=== PATIENT | male | born 1970 | race Caucasian/White ===

== ENCOUNTER 2018-05-27 12:35 | Emergency (ER) | payer OTHER ==
[2018-05-27 12:43] VITALS: TEMP 98.2
[2018-05-27] MEDS ORDERED: ACET/COD 300 MG/30 MG STARTER PACK 6 TAB BTL PO STA (12:57)
--- NOTE | 2018-05-27 12:59 | ED ---
ENT HPI - General Chief complaint: Dental/Oral Stated complaint: Tooth Pain Time Seen by Provider: 05/27/18 12:47 Source: patient, RN notes reviewed Mode of arrival: ambulatory Limitations: no limitations - History of Present Illness Initial comments: 48-year-old male presents emergency Department chief complaint of left lower dental pain. Patient states it has increased over the last couple days. Patient states is throbbing controlled by ibuprofen but is not helping. Patient has an appointment with dental clinic on Monday for multiple tooth extractions. Patient admits to mild lower left swelling no fever no chills no neck pain no neck stiffness. - Related Data Previous Rx's Medication Instructions Recorded Penicillin V Potassium [Pen Vee K] 500 mg PO QID #40 tablet 05/27/18 Allergies Allergy/AdvReac Type Severity Reaction Status Date / Time duloxetine [From Cymbalta] Allergy Unknown Verified 05/27/18 12:43 Review of Systems ROS Statement: Those systems with pertinent positive or pertinent negative responses have been documented in the HPI. ROS Other: All systems not noted in ROS Statement are negative. Past Medical History Past Medical History: Hypertension History of Any Multi-Drug Resistant Organisms: None Reported Past Surgical History: Hernia Repair Additional Past Surgical History / Comment(s): eye surgery Past Psychological History: No Psychological Hx Reported Smoking Status: Current every day smoker Past Alcohol Use History: Occasional Past Drug Use History: Marijuana General Exam Limitations: no limitations General appearance: alert, in no apparent distress Head exam: Present: atraumatic, normocephalic, normal inspection Eye exam: Present: normal appearance, PERRL, EOMI. Absent: scleral icterus, conjunctival injection, periorbital swelling ENT exam: Present: mucous membranes moist, TM's normal bilaterally. Absent: normal oropharynx (Edentulous, poor dentition, no drainable abscess.) Neck exam: Present: normal inspection, full ROM. Absent: tenderness, meningismus, lymphadenopathy Respiratory exam: Present: normal lung sounds bilaterally. Absent: respiratory distress, wheezes, rales, rhonchi, stridor Cardiovascular Exam: Present: regular rate, normal rhythm, normal heart sounds. Absent: systolic murmur, diastolic murmur, rubs, gallop, clicks Course Vital Signs 05/27/18 12:41 Temperature 98.2 F Pulse Rate 66 Respiratory 20 Rate Blood Pressure 175/100 O2 Sat by Pulse 99 Oximetry Medical Decision Making - Medical Decision Making 48-year-old male present emergency department for dental pain. Patient be started on antiemetics for dental infection. Patient given [Tylenol codeine and will follow-up with dental clinic on Monday. Disposition Clinical Impression: Dental infection, Dental caries Disposition: HOME SELF-CARE Condition: Stable Instructions: Dental Abscess (ED) Additional Instructions: Please return to the Emergency Department if symptoms worsen or any other concerns. Prescriptions: Penicillin V Potassium [Pen Vee K] 500 mg PO QID #40 tablet Is patient prescribed a controlled substance at d/c from ED?: No Referrals: [facility] [Primary Care Provider] - 1-2 days Time of Disposition: 12:59
[2018-05-27 13:16] VITALS: BP 185/107; PULSE 64; RESP 18
== END 2018-05-27 13:16 | disposition home or self-care (01) ==
LOC: EC 12:35
DX: K04.7 Periapical abscess without sinus (principal); K02.9 Dental caries, unspecified; F17.200 Nicotine dependence, unspecified, uncomplicated; Z79.899 Other long term (current) drug therapy
CPT/HCPCS: 99282

== ENCOUNTER 2018-06-17 13:04 | Emergency (ER) | payer OTHER ==
[2018-06-17 13:22] VITALS: BP 161/106; PULSE 64; RESP 16; TEMP 98.4
[2018-06-17] MEDS ORDERED: ACET/COD 300 MG/30 MG STARTER PACK 6 TAB BTL PO STA (14:03)
[2018-06-17] MEDS ORDERED: PENICILLIN VK 500MG STARTER 4 TAB BTL PO STA (14:03)
--- NOTE | 2018-06-17 14:05 | ED ---
General Adult HPI - General Chief complaint: Recheck/Abnormal Lab/Rx Stated complaint: Dental pain Time Seen by Provider: 06/17/18 13:55 Source: patient, RN notes reviewed, old records reviewed Mode of arrival: ambulatory Limitations: no limitations - History of Present Illness Initial comments: Patient is a 48 year old male presents with CC of dental pain. Patient had lower left molars removed last week. Patient reports he started having increased pain 2 days ago. Ibuprofen has not helped. Patient has had no fevers or chills. Denies triusmus or foul taste or odor in mouth. Patient denies facial swelling. - Related Data Home Medications Medication Instructions Recorded Confirmed Lisinopril [Zestril] 20 mg PO DAILY 05/27/18 06/17/18 Previous Rx's Medication Instructions Recorded Penicillin V Potassium [Pen Vee K] 500 mg PO QID #40 tablet 06/17/18 Allergies Allergy/AdvReac Type Severity Reaction Status Date / Time duloxetine [From Cymbalta] Allergy Unknown Verified 06/17/18 13:22 Review of Systems ROS Statement: Those systems with pertinent positive or pertinent negative responses have been documented in the HPI. ROS Other: All systems not noted in ROS Statement are negative. Past Medical History Past Medical History: Hypertension History of Any Multi-Drug Resistant Organisms: None Reported Past Surgical History: Hernia Repair Additional Past Surgical History / Comment(s): eye surgery Past Psychological History: No Psychological Hx Reported Smoking Status: Current every day smoker Past Alcohol Use History: Occasional Past Drug Use History: Marijuana General Exam - General Exam Comments Initial Comments: Well appearing 48 yea rold male, no distress. Limitations: no limitations General appearance: alert, in no apparent distress Head exam: Present: atraumatic, normocephalic, normal inspection Eye exam: Present: normal appearance, PERRL, EOMI. Absent: scleral icterus, conjunctival injection, periorbital swelling ENT exam: Present: normal exam, mucous membranes moist, other (Poor dentition, evdience of recent dental surgery over left lower molars. Evidnece of sutures. Patient has tenderness to palpation over gums. No drainable abscess at this time. ) Neck exam: Present: normal inspection. Absent: tenderness, meningismus, lymphadenopathy Respiratory exam: Present: normal lung sounds bilaterally. Absent: respiratory distress, wheezes, rales, rhonchi, stridor Cardiovascular Exam: Present: regular rate, normal rhythm, normal heart sounds. Absent: systolic murmur, diastolic murmur, rubs, gallop, clicks GI/Abdominal exam: Present: soft, normal bowel sounds. Absent: distended, tenderness, guarding, rebound, rigid Course Vital Signs 06/17/18 13:18 Temperature 98.4 F Pulse Rate 64 Respiratory 16 Rate Blood Pressure 161/106 O2 Sat by Pulse 98 Oximetry Procedures - Nerve Block Local Anesthetic Used: Marcaine 0.5% Amount of anesthesia used: 3 Side: left Intraoral Nerve Block: inferior alveolar Procedure Successful: Yes Complications: none Patient Tolerated Procedure: well, no complications Medical Decision Making - Medical Decision Making 48 year old male presents with dnetal pain, 1 week after left lower molars removed. He has tenderness over gums, no drainable abscess at this time. Evidence of intact sutures. Patient has appt with dentist tomorrow, but could not handle the pain until then. Patient was given antibiotics, tylenol 3 starter pack. Given inferior alveolar block and was successfull. Patient at this time will ahve close follow up with PCP and discussed return parameters. Disposition Clinical Impression: Dental infection, Dental caries Disposition: HOME SELF-CARE Condition: Good Instructions: Dental Abscess (ED) Additional Instructions: Following up with primary care provider and dentist tomorrow. Return to emergency department if any alarming signs or symptoms occur. Prescriptions: Penicillin V Potassium [Pen Vee K] 500 mg PO QID #40 tablet Is patient prescribed a controlled substance at d/c from ED?: No Referrals: [facility] [Primary Care Provider] - 1-2 days Time of Disposition: 14:03
== END 2018-06-17 14:15 | disposition home or self-care (01) ==
LOC: EC 13:04
DX: K04.7 Periapical abscess without sinus (principal); K02.9 Dental caries, unspecified; K08.409 Partial loss of teeth, unspecified cause, unspecified class; I10 Essential (primary) hypertension; F17.200 Nicotine dependence, unspecified, uncomplicated; Z98.818 Other dental procedure status; Z79.899 Other long term (current) drug therapy; Z88.8 Allergy status to other drugs, medicaments and biological substances
CPT/HCPCS: 64450; 99283

== ENCOUNTER 2018-06-24 09:24 | Emergency (ER) | payer OTHER ==
[2018-06-24 09:35] VITALS: BP 110/60; PULSE 111; RESP 18; TEMP 98.9
[2018-06-24] MEDS ORDERED: DEXAMETHASONE SOD PHOSPHATE 10 MG/ML 1 ML VIAL IM STA (09:46)
--- NOTE | 2018-06-24 09:49 | ED ---
General Adult HPI - General Chief complaint: Dental/Oral Stated complaint: Dental pain Time Seen by Provider: 06/24/18 09:38 Source: patient, RN notes reviewed Mode of arrival: ambulatory Limitations: no limitations - History of Present Illness Initial comments: Patient's a 48-year-old male presented to the emergency room today with a chief complaint of increased sinus congestion and a sore throat. He doesn't that he had upper teeth removed 2 days ago. Patient states that he's had increased sinus congestion. He seemed a little bit of blood in the discharge from his nose when he blows. Patient states that his had increased sore throat since hurts when he swallows. Patient states symptoms started yesterday. Patient denies any other complaints or symptoms. Patient denies any recent fever, chills , shortness of breath, chest pain, back pain, abdominal pain, nausea or vomiting , numbness or tingling, headaches or visual changes, or any other complaints. - Related Data Home Medications Medication Instructions Recorded Confirmed Lisinopril [Zestril] 20 mg PO DAILY 05/27/18 06/24/18 Previous Rx's Medication Instructions Recorded Amoxicillin 500 mg PO Q8H 10 Days day 06/24/18 Fluticasone Propionate [Flonase 1 - 2 spray EA NOSTRIL DAILY 5 06/24/18 Allergy Relief] Days ml Allergies Allergy/AdvReac Type Severity Reaction Status Date / Time duloxetine [From Cymbalta] Allergy Unknown Verified 06/24/18 09:35 Review of Systems ROS Statement: Those systems with pertinent positive or pertinent negative responses have been documented in the HPI. ROS Other: All systems not noted in ROS Statement are negative. Past Medical History Past Medical History: Hypertension History of Any Multi-Drug Resistant Organisms: None Reported Past Surgical History: Hernia Repair Additional Past Surgical History / Comment(s): eye surgery Past Psychological History: Anxiety, Depression, PTSD Smoking Status: Current every day smoker Past Alcohol Use History: Occasional Past Drug Use History: None Reported General Exam - General Exam Comments Initial Comments: General: The patient is awake and alert, in no distress, and does not appear acutely ill. Eye: Pupils are equal, round and reactive to light. Extra-ocular movements are intact. No nystagmus. There is normal conjunctiva bilaterally. No signs of icterus. Ears, nose, mouth and throat: There are moist mucous membranes and no oral lesions. Patient does have tenderness over both frontal and maxillary sinuses. Patient he will midline. Swallows without difficulty. Patient does have upper teeth all removed. There is no bleeding no sign of abscess. Neck: The neck is supple, there is no tenderness or JVD. Cardiovascular: There is a regular rate and rhythm. No murmur, rub or gallop is appreciated. Respiratory: Lungs are clear to auscultation, respirations are non-labored, breath sounds are equal. No wheezes, stridor, rales, or rhonchi. Musculoskeletal: Normal ROM, no tenderness. Sensation intact. Strength 5/5. Pulses equal bilaterally 2+. Neurological: A&O x 3. CN II-XII intact, There are no obvious motor or sensory deficits. Coordination appears grossly intact. Speech is normal. Skin: Skin is warm and dry and no rashes or lesions are noted. Psychiatric: Cooperative, appropriate mood & affect, normal judgment. Limitations: no limitations Course Vital Signs 06/24/18 09:31 Temperature 98.9 F Pulse Rate 111 H Respiratory 18 Rate Blood Pressure 110/60 O2 Sat by Pulse 97 Oximetry Medical Decision Making - Medical Decision Making Patient does have tenderness over the sinuses. Patient did have recent upper teeth completely removed. Patient's will be treated for sinus infection. Given dose of steroids here in the emergency room. Will be given Flonase covered for infection with antibiotics. He is advised follow-up family doctor in the next 2 days return if any symptoms increase or worsen. Disposition Clinical Impression: Acute sinusitis Disposition: HOME SELF-CARE Condition: Good Instructions: Sinusitis (ED) Additional Instructions: Please use medication as discussed. Please follow-up with family doctor in the next 2 days of symptoms have not improved. Please return to emergency room if the symptoms increase or worsen or for any other concerns. Prescriptions: Amoxicillin 500 mg PO Q8H 10 Days day Fluticasone Propionate [Flonase Allergy Relief] 1 - 2 spray EA NOSTRIL DAILY 5 Days ml Is patient prescribed a controlled substance at d/c from ED?: No Referrals: [facility] [Primary Care Provider] - 1-2 days Time of Disposition: 09:49
== END 2018-06-24 09:57 | disposition home or self-care (01) ==
LOC: EC 09:24
DX: J01.90 Acute sinusitis, unspecified (principal); K08.409 Partial loss of teeth, unspecified cause, unspecified class; I10 Essential (primary) hypertension; F17.200 Nicotine dependence, unspecified, uncomplicated; Z79.899 Other long term (current) drug therapy; Z88.8 Allergy status to other drugs, medicaments and biological substances
CPT/HCPCS: 99282; 96372; J1100

== ENCOUNTER 2018-07-12 09:44 | Day surgery (SDC) | payer OTHER ==
[2018-07-06 15:21] VITALS: BMI 23.9
[~2018-07-12 09:44] MED LIST: DEXAMETHASONE SOD PHOSPHATE 10 MG/ML 1 ML VIAL IV ONE; LACTATED RINGERS 1,000 ML IV SCH; LIDOCAINE 1% 20 ML VIAL (10MG/ML) FOR IV START INTRADERMA PRN; MIDAZOLAM 2 MG/2 ML VIAL IV PRN; ONDANSETRON 4 MG/2 ML VIAL IVP ONE
[2018-07-12] MEDS ORDERED: BUPIVACAIN-EPI 0.25%-1:200,000 30 ML VIAL SQ ONE ×2 (11:05→11:08)
[2018-07-12] MEDS: ceFAZolin IN SWFI 2 GM/20 ML SYRINGE IVP ONE ×2 (11:07→11:45)
[2018-07-12] MEDS ORDERED: fentaNYL (PF) 50 MCG/ML 2 ML AMP ONE (11:30)
[2018-07-12] MEDS ORDERED: HYDROmorphone (PF) 1 MG/ML ONE (11:30)
[2018-07-12] MEDS ORDERED: LIDOCAINE 1% INJ 10MG/ML (20 ML MDV) ONE (11:30)
[2018-07-12] MEDS ORDERED: PROPOFOL 10 MG/ML 20 ML VIAL IV ONE (11:30)
[2018-07-12] MEDS ORDERED: MIDAZOLAM 2 MG/2 ML VIAL ONE (11:30)
[2018-07-12] MEDS ORDERED: KETOROLAC 30 MG/ML 1 ML VIAL ONE (11:30)
[2018-07-12] MEDS ORDERED: SUCCINYLCHOLINE CHLORIDE 100 MG/5 ML SYR IV ONE (11:30)
[2018-07-12 12:47] VITALS: TEMP 97.7
[2018-07-12] MEDS: fentaNYL (PF) 50 MCG/ML 2 ML AMP IV PRN ×2 (12:50→12:56)
[2018-07-12 13:40] VITALS: RESP 18
[2018-07-12] MEDS ORDERED: HYDROcodone/APAP 5-325MG 1 EACH TAB PO ONE (13:56)
[2018-07-12 14:16] VITALS: BP 135/75; PULSE 97
--- NOTE | 2018-07-12 19:18 | OP ---
OPERATIVE REPORT DATE OF PROCEDURE: 07/12/2018. PREOPERATIVE DIAGNOSIS: Right knee medial meniscus tear. POSTOP DIAGNOSES: 1. Right knee posterior horn medial meniscus tear. 2. Right knee thickened infrapatellar medial shelf plica. PROCEDURE PERFORMED: 1. Right knee arthroscopic partial medial meniscectomy. 2. Right knee arthroscopic lysis of adhesions. SURGEON: Raudel Padilla M.D. ASSISTANT TO THE DEAN: Cornelio MARLEY. ANESTHESIA: General endotracheal. ESTIMATED BLOOD LOSS: Was minimal. TOURNIQUET: Was none. DRAINS: None. COMPLICATIONS: None apparent. DISPOSITION: Postanesthesia care unit. INDICATIONS: Calos is a very pleasant 48-year-old male who had a twisting injury to his right knee. Physical examination and MRI are consistent with a tearing of the posterior horn of the medial meniscus. I had a long discussion with him with regard to treatment options. At this point, he does wish to proceed with operative intervention. Risks were explained to the patient which include, but are not limited to risk of infection, nerve damage, bleeding, pain, and a small risk of deep vein thrombosis which could lead to fatal pulmonary embolism. The patient understands these risks and wished to proceed with surgical procedure. Examination under anesthesia: Range of motion right full, left full. Effusion: Right mild, left none. Bernadette: Right with good end point. Left normal good end point. Pivot shift right grade 0, left grade 0. Posterior drawer right with good end point. Left normal good end point. Varus laxity right none, left none valgus laxity right none, left none. External rotation right normal, left normal. ARTHROSCOPIC FINDINGS: Suprapatellar pouch is normal. Medial gutter thickened medial shelf plica. Lateral gutters normal. Patella normal chondral surfaces. Trochlea had grade 1-2 change in the central aspect of the trochlea. Patellar tracking was normal. The medial femoral condyle, normal chondral surfaces. Medial tibial plateau very mild grade 1 change. Medial meniscus complex tear of the posterior horn in the middle body of the medial meniscus. There was a large displaced flap tear laterally into the infrapatellar notch as well. Lateral femoral condyle normal chondral surfaces, lateral tibial plateau diffuse grade 1 change. Lateral meniscus was normal. Anterior cruciate ligament normal. Posterior cruciate ligament normal. Infrapatellar notch thickened inferior plica. DESCRIPTION OF THE PROCEDURE: Patient was identified in the preoperative holding area. Surgical site was marked by both the patient and myself. He was given 2 g of Ancef IV for prophylactic purposes. He was then transported to the operative suite. He was placed supine on the operative table. General anesthetic was then administered and dosed per the anesthesia without apparent complication. Examination under anesthesia was then performed of both knees. The findings noted above. Tourniquet was then placed high on the right upper thigh well-padded in preparation for surgery. The tourniquet was not inflated throughout the entire procedure. The patient's right lower extremity is then prepped and draped in usual sterile fashion. Standard surgical pause undertaken to ensure that we were operating the correct site and that appropriate preoperative antibiotics were given. All staff in the room in agreement. We proceeded. The knee was then inflated with 120 mL sterile saline solution. This was done to gradually distend the joint. A standard inferolateral portal was then made. A 30 degree arthroscope was introduced into the suprapatellar pouch. The arthroscopic pump pressure was set at 60 mmHg and maintained at that level throughout the entire case. Next utilizing an 18-gauge spinal needle topical localized placement, the inferomedial port was made under direct visualization. Standard diagnostic arthroscopy of the knee was then performed. Findings noted above. Attention first drawn to the inferior notch. He had a very thickened infrapatellar plica and medial shelf plica. These were released with a biter and debrided back to stable tissue utilizing synovial shaver. Attention then drawn to the medial compartment of the knee. A very macerated posterior horn midbody tear of the medial meniscus. It was very complex. There was a very large flap tear, which had been flipped laterally into the notch. This tear was deemed irreparable. The meniscus tear was then debrided with a combination of biters and a shaver back to stable tissue. Approximately 50% of the posterior horn and midbody of the meniscus remained intact after debridement. Next, the arthroscope was placed medial to the posterior cruciate ligament through the notch in the posteromedial compartment knee. There were no residual flap tears or loose bodies noted. The posterior root attachment was carefully inspected and found to be intact. At this point time, no further work was deemed necessary. The knee was thoroughly irrigated and drained with an outflow cannula. The arthroscope was removed from the knee. The arthroscopic portals were then closed with 3-0 nylon interrupted suture. Sterile compressive dressing was then applied. All sponge and needle counts were deemed correct prior to closure. The patient tolerated the procedure without apparent complication. The tourniquet was not inflated throughout the entire procedure. Transferred to the recovery room in stable condition. MARIEL / GERARDO: [id number] /
== END 2018-07-12 14:57 | disposition home or self-care (01) ==
LOC: OR 09:44
PROVIDERS: ATTEND Orthopaedic Surgery Sports Medicine
DX: S83.231A Complex tear of medial meniscus, current injury, right knee, initial encounter (principal); M67.52 Plica syndrome, left knee; M71.21 Synovial cyst of popliteal space [Baker], right knee; I10 Essential (primary) hypertension; F32.9 Major depressive disorder, single episode, unspecified; F41.9 Anxiety disorder, unspecified; F43.10 Post-traumatic stress disorder, unspecified; K21.9 Gastro-esophageal reflux disease without esophagitis; F17.210 Nicotine dependence, cigarettes, uncomplicated; X50.1XXA Overexertion from prolonged static or awkward postures, initial encounter; Z79.899 Other long term (current) drug therapy; Z82.49 Family history of ischemic heart disease and other diseases of the circulatory system
CPT/HCPCS: 29881; J2250; J1100; J2405; J2001; J3010; J1885; J1170; J0330; J2704; J0690

== ENCOUNTER 2018-08-13 17:47 | Emergency (ER) | payer OTHER ==
[2018-08-13 18:00] VITALS: TEMP 97.4
--- NOTE | 2018-08-13 18:57 | ED ---
Psych HPI - General Chief Complaint: Psychiatric Symptoms Stated Complaint: Mental Health Time Seen by Provider: 08/13/18 18:08 Source: patient, RN notes reviewed Mode of arrival: ambulatory - History of Present Illness Initial Comments: This is a 48-year-old male history depression and suicidal thoughts admits to drinking some alcohol today he also states he was just kicked out of the [facility] group home he was seen after last 90 days. He has nowhere to live he does admit to being depressed he's had suicidal thoughts especially over last week no definite plan at this time. He denies any other modifying factors at this time no street drugs. MD Complaint: suicidal ideation, feels depressed - Related Data Home Medications Medication Instructions Recorded Confirmed Lisinopril [Zestril] 20 mg PO DAILY 05/27/18 08/13/18 [place] Carbonate 600 mg PO HS 07/06/18 08/13/18 Loratadine [Claritin] 10 mg PO DAILY 07/06/18 08/13/18 Omeprazole [PriLOSEC] 20 mg PO AC-BRKFST 07/06/18 08/13/18 QUEtiapine FUMARATE [SEROquel] 300 mg PO HS 07/06/18 08/13/18 Albuterol Inhaler [Ventolin Hfa 1 puff INHALATION RT-Q6H PRN 08/13/18 08/13/18 Inhaler] Desvenlafaxine [Pristiq ER] 100 mg PO DAILY 08/13/18 08/13/18 Diclofenac Sodium [Voltaren Gel] 1 applic TOPICAL QID PRN 08/13/18 08/13/18 Ergocalciferol (Vitamin D2) 50,000 unit PO Q14D 08/13/18 08/13/18 [Vitamin D2] Menthol [Biofreeze] 1 applic TOPICAL TID PRN 08/13/18 08/13/18 Propranolol [Inderal] 40 mg PO BID 08/13/18 08/13/18 Allergies Allergy/AdvReac Type Severity Reaction Status Date / Time duloxetine [From Cymbalta] AdvReac Nausea & Verified 08/13/18 18:44 Vomiting Review of Systems ROS Statement: Those systems with pertinent positive or pertinent negative responses have been documented in the HPI. ROS Other: All systems not noted in ROS Statement are negative. Past Medical History Past Medical History: GERD/Reflux, Hypertension Additional Past Medical History / Comment(s): torn meniscus rt knee History of Any Multi-Drug Resistant Organisms: None Reported Past Surgical History: Hernia Repair, Orthopedic Surgery Additional Past Surgical History / Comment(s): eye surgery, rt elbow Past Anesthesia/Blood Transfusion Reactions: No Reported Reaction Past Psychological History: Anxiety, Depression, PTSD Smoking Status: Current every day smoker Past Alcohol Use History: Occasional Past Drug Use History: None Reported - Past Family History Mother Family Medical History: No Reported History General Exam - General Exam Comments Initial Comments: This is a well-developed well-nourished awake alert oriented 3 male Limitations: no limitations General appearance: alert, in no apparent distress Head exam: Present: atraumatic, normocephalic, normal inspection Eye exam: Present: normal appearance, PERRL, EOMI. Absent: scleral icterus, conjunctival injection, periorbital swelling ENT exam: Present: normal exam, mucous membranes moist Neck exam: Present: normal inspection. Absent: tenderness, meningismus, lymphadenopathy Respiratory exam: Present: normal lung sounds bilaterally. Absent: respiratory distress, wheezes, rales, rhonchi, stridor Cardiovascular Exam: Present: regular rate, normal rhythm, normal heart sounds. Absent: systolic murmur, diastolic murmur, rubs, gallop, clicks GI/Abdominal exam: Present: soft, normal bowel sounds. Absent: distended, tenderness, guarding, rebound, rigid Extremities exam: Present: normal inspection, full ROM, normal capillary refill. Absent: tenderness, pedal edema, joint swelling, calf tenderness Back exam: Present: normal inspection Neurological exam: Present: alert, oriented X3, CN II-XII intact Psychiatric exam: Present: depressed, flat affect, suicidal ideation Skin exam: Present: warm, dry, intact, normal color. Absent: rash Course Vital Signs 08/13/18 17:56 Temperature 97.4 F L Pulse Rate 55 L Respiratory 18 Rate Blood Pressure 127/84 O2 Sat by Pulse 100 Oximetry Medical Decision Making - Medical Decision Making The patient was evaluated by psychiatric service currently is not a risk to himself or anyone else he will be discharged back to his group home who is agreed to take him back. He'll follow-up with [facility] tomorrow. He is in agreement with this. - Lab Data Lab Results 11/26/18 Range/Units 20:19 Urine Opiates Screen Not Detected (NotDetected) Ur Oxycodone Screen Not Detected (NotDetected) Urine Methadone Screen Not Detected (NotDetected) Ur Propoxyphene Screen Not Detected (NotDetected) Ur Barbiturates Screen Not Detected (NotDetected) U Tricyclic Antidepress Not Detected (NotDetected) Ur Phencyclidine Scrn Not Detected (NotDetected) Ur Amphetamines Screen Not Detected (NotDetected) U Methamphetamines Scrn Not Detected (NotDetected) U Benzodiazepines Scrn Not Detected (NotDetected) Urine Cocaine Screen Not Detected (NotDetected) U Marijuana (THC) Screen Not Detected (NotDetected) Disposition Clinical Impression: Adjustment reaction Disposition: HOME SELF-CARE Condition: Good Instructions: Mood Disorders (ED) Is patient prescribed a controlled substance at d/c from ED?: No Referrals: [facility] [Primary Care Provider] - 1-2 days
[2018-08-13 20:37] LABS: Cocaine Screen,Urine Not Detected (NotDetected); Phencyclidine Screen,Urine Not Detected (NotDetected); Urn Cannabinoid Scrn Not Detected (NotDetected)
[2018-08-13 20:38] LABS: Amphetamine Screen,Urine Not Detected (NotDetected); Barbiturate Screen,Urine Not Detected (NotDetected); Benzodiazepines Screen,Urine Not Detected (NotDetected); Methadone Screen, Urine Not Detected (NotDetected); Opiate Screen,Urine Not Detected (NotDetected); Oxycodone Screen, Urine Not Detected (NotDetected); Tricyclic Antidepressant,Urine Not Detected (NotDetected)
[2018-08-13 22:16] VITALS: BP 122/86; PULSE 65; RESP 14
== END 2018-08-13 23:15 | disposition home or self-care (01) ==
LOC: EC 17:47
DX: F43.20 Adjustment disorder, unspecified (principal); I10 Essential (primary) hypertension; K21.9 Gastro-esophageal reflux disease without esophagitis; F32.9 Major depressive disorder, single episode, unspecified; F17.200 Nicotine dependence, unspecified, uncomplicated; Z79.899 Other long term (current) drug therapy; Z88.8 Allergy status to other drugs, medicaments and biological substances
CPT/HCPCS: 80306; 82075; 99284

== ENCOUNTER 2018-08-14 19:54 | Emergency (ER) | payer OTHER ==
[2018-08-14 20:38] VITALS: BP 142/87; PULSE 56; RESP 18; TEMP 98.2
--- NOTE | 2018-08-14 20:59 | ED ---
Psych HPI - General Chief Complaint: Psychiatric Symptoms Stated Complaint: Mental health, hand pain Time Seen by Provider: 08/14/18 20:56 Source: patient Mode of arrival: ambulatory - History of Present Illness Initial Comments: Calos is a 48-year-old male who is brought to the ED today for mental health evaluation. Calos states that today he was kicked out of his [facility] where he has been living, he spent the entire day outside in the cold weather. He does state that he has been in and out of warmth buildings and he doesn't feel they got too cold those hands didn't turn purple this afternoon. Patient states that throughout the day he's been having thoughts of harming the employees at the [facility] because he is upset that they have kicked him out. Patient states passive depressive thoughts no specific plan to harm himself. He reports that he is compliant with his home antidepressants which are prescribed by his primary care doctor and nurse practitioner at [facility]. Patient states that he is scheduled to see his therapist tomorrow. Patient has no history of inpatient psychiatric hospitalization in the past. Patient is not actively homicidal, suicidal, delusional or hallucinating. He is able to attend his activities of daily living. He states that he believes most of why he is here is because he was cold. - Related Data Home Medications Medication Instructions Recorded Confirmed Lisinopril [Zestril] 20 mg PO DAILY 05/27/18 08/14/18 [place] Carbonate 600 mg PO HS 07/06/18 08/14/18 Loratadine [Claritin] 10 mg PO DAILY PRN 07/06/18 08/14/18 Omeprazole [PriLOSEC] 20 mg PO AC-BRKFST 07/06/18 08/14/18 QUEtiapine FUMARATE [SEROquel] 300 mg PO HS 07/06/18 08/14/18 Albuterol Inhaler [Ventolin Hfa 1 puff INHALATION RT-Q6H PRN 08/13/18 08/14/18 Inhaler] Desvenlafaxine [Pristiq ER] 100 mg PO DAILY 08/13/18 08/14/18 Ergocalciferol (Vitamin D2) 50,000 unit PO Q14D 08/13/18 08/14/18 [Vitamin D2] Propranolol [Inderal] 40 mg PO BID 08/13/18 08/14/18 Allergies Allergy/AdvReac Type Severity Reaction Status Date / Time duloxetine [From Cymbalta] AdvReac Nausea & Verified 08/14/18 20:56 Vomiting Review of Systems ROS Statement: Those systems with pertinent positive or pertinent negative responses have been documented in the HPI. ROS Other: All systems not noted in ROS Statement are negative. Past Medical History Past Medical History: GERD/Reflux, Hypertension Additional Past Medical History / Comment(s): torn meniscus rt knee, History of Any Multi-Drug Resistant Organisms: None Reported Past Surgical History: Hernia Repair, Orthopedic Surgery Additional Past Surgical History / Comment(s): eye surgery, rt elbow, right knee , Past Anesthesia/Blood Transfusion Reactions: No Reported Reaction Past Psychological History: Anxiety, Depression, PTSD Smoking Status: Current every day smoker Past Alcohol Use History: Occasional Past Drug Use History: None Reported - Past Family History Mother Family Medical History: No Reported History General Exam - General Exam Comments Initial Comments: Physical Exam GENERAL: Patient is well-developed and well-nourished. Patient is nontoxic and well- hydrated and is in no distress. HENT: Normocephalic, Atraumatic. EYES: PERRL, EOMI PULMONARY: Unlabored respirations. No audible rales rhonchi or wheezing was noted. CARDIOVASCULAR: There is a regular rate and rhythm without any murmurs gallops or rubs. ABDOMEN: Soft and nontender with normal bowel sounds. SKIN: Skin is dry, hands are cold to the touch and purple in color but there is no waxy changes or blistering no evidence of frostbite : Deferred NEUROLOGIC: Patient is alert and oriented x3. Moving all extremities spontaneously MUSCULOSKELETAL: Normal extremities with adequate strength and full range of motion. No lower extremity swelling or edema. No calf tenderness. PSYCHIATRIC: Anxious Limitations: no limitations Limitations: no limitations Course Vital Signs 08/14/18 20:34 Temperature 98.2 F Pulse Rate 56 L Respiratory 18 Rate Blood Pressure 142/87 O2 Sat by Pulse 100 Oximetry Medical Decision Making - Medical Decision Making The patient was seen and evaluated history is obtained from the patient and review of medical record Patient was recently kicked out of his [facility], has no place to stay, spent the day in the cold and was very cold and having thoughts of harming the people the [facility] for making him stay on the cold all day Patient is medically cleared for psychiatric evaluation She was seen and evaluated by EPS nurse who agrees at this time there is no acute psychiatric emergency, she will work on finding placement for the patient for the night Patient stable for discharge home, if he has a safe place to sleep for the night. Disposition Clinical Impression: Depression Disposition: HOME SELF-CARE Condition: Stable Instructions: Acute Hypothermia (ED) Is patient prescribed a controlled substance at d/c from ED?: No Referrals: [facility] [Primary Care Provider] - 1-2 days
== END 2018-08-15 00:16 | disposition home or self-care (01) ==
LOC: EC 19:54
DX: F32.9 Major depressive disorder, single episode, unspecified (principal); M79.643 Pain in unspecified hand; K21.9 Gastro-esophageal reflux disease without esophagitis; I10 Essential (primary) hypertension; F41.9 Anxiety disorder, unspecified; F43.10 Post-traumatic stress disorder, unspecified; F17.200 Nicotine dependence, unspecified, uncomplicated; Z79.899 Other long term (current) drug therapy; Z88.8 Allergy status to other drugs, medicaments and biological substances
CPT/HCPCS: 82075; 99283

== ENCOUNTER 2018-08-15 20:39 | Emergency (ER) | payer OTHER ==
--- NOTE | 2018-08-15 21:06 | ED ---
Psych HPI - General Chief Complaint: Psychiatric Symptoms Stated Complaint: Mental health Time Seen by Provider: 08/15/18 21:06 Source: patient Mode of arrival: ambulatory - History of Present Illness Initial Comments: Alexis is a 48-year-old gentleman who comes to the ER today for evaluation of thoughts of suicide. Alexis states that he was supposed to be contacted by somebody day regarding setting up home however he wasn't, he states that he became very agitated with this and this evening he was at his friend's house and he became very agitated with being homeless during this cold weather and told his friend that he was given kill himself. He stated that he was can run around the traffic or use can take 1 of his niacin cut his wrists. Patient does report that he did have a knife in his possession but his friend to get from him at which time he decided to come to the ER for reevaluation. Patient was last seen last night and discharged this morning after being cleared by EPS. - Related Data Home Medications Medication Instructions Recorded Confirmed Lisinopril [Zestril] 20 mg PO DAILY 05/27/18 08/15/18 [place] Carbonate 600 mg PO HS 07/06/18 08/15/18 Loratadine [Claritin] 10 mg PO DAILY PRN 07/06/18 08/15/18 Omeprazole [PriLOSEC] 20 mg PO AC-BRKFST 07/06/18 08/15/18 QUEtiapine FUMARATE [SEROquel] 300 mg PO HS 07/06/18 08/15/18 Albuterol Inhaler [Ventolin Hfa 1 puff INHALATION RT-Q6H PRN 08/13/18 08/15/18 Inhaler] Desvenlafaxine [Pristiq ER] 100 mg PO DAILY 08/13/18 08/15/18 Ergocalciferol (Vitamin D2) 50,000 unit PO Q14D 08/13/18 08/15/18 [Vitamin D2] Propranolol [Inderal] 40 mg PO BID 08/13/18 08/15/18 Allergies Allergy/AdvReac Type Severity Reaction Status Date / Time duloxetine [From Cymbalta] AdvReac Nausea & Verified 08/15/18 21:06 Vomiting Review of Systems ROS Statement: Those systems with pertinent positive or pertinent negative responses have been documented in the HPI. ROS Other: All systems not noted in ROS Statement are negative. Past Medical History Past Medical History: GERD/Reflux, Hypertension Additional Past Medical History / Comment(s): torn meniscus rt knee, History of Any Multi-Drug Resistant Organisms: None Reported Past Surgical History: Hernia Repair, Orthopedic Surgery Additional Past Surgical History / Comment(s): eye surgery, rt elbow, right knee , Past Anesthesia/Blood Transfusion Reactions: No Reported Reaction Past Psychological History: Anxiety, Depression, PTSD Smoking Status: Current every day smoker Past Alcohol Use History: Occasional Past Drug Use History: None Reported - Past Family History Mother Family Medical History: No Reported History General Exam - General Exam Comments Initial Comments: Physical Exam GENERAL: Patient is well-developed and well-nourished. Patient is nontoxic and well- hydrated and is in no distress. HENT: Normocephalic, Atraumatic. EYES: PERRL, EOMI PULMONARY: Unlabored respirations. No audible rales rhonchi or wheezing was noted. CARDIOVASCULAR: There is a regular rate and rhythm without any murmurs gallops or rubs. ABDOMEN: Soft and nontender with normal bowel sounds. SKIN: Dry skin : Deferred NEUROLOGIC: Patient is alert and oriented x3. Moving all extremities spontaneously MUSCULOSKELETAL: Normal extremities with adequate strength and full range of motion. No lower extremity swelling or edema. No calf tenderness. PSYCHIATRIC: Normal psychiatric evaluation. Limitations: no limitations Limitations: no limitations Course Vital Signs 08/16/18 01:37 Temperature 97.8 F Pulse Rate 78 Respiratory 20 Rate Blood Pressure 102/66 O2 Sat by Pulse 98 Oximetry Medical Decision Making - Medical Decision Making The patient was seen and evaluated Breath alcohol was negative Patient's currently homeless, frustrated with being homeless in the cold weather Patient with report of suicidal thoughts Patient is cleared for evaluation by psychiatry next line a regular diet was ordered Patient was evaluated by EPS, was determined the patient is in fact safe for discharge home, patient does have an open a can with [facility], he follows closely with her therapist, he does have contact with support services and is scheduled to meet with somebody regarding placement in an apartment in the next day or so. In addition the patient has recently had a job interview into his physical and drug test for his job today. At this time the patient just needs a warm place to sleep for the night. Advised the patient can rest in the bed for a short time and will be discharged to our waiting room until morning. - Lab Data Lab Results 08/15/18 Range/Units 23:05 Urine Color Colorless Urine Appearance Clear (Clear) Urine pH 5.0 (5.0-8.0) Ur Specific [place] 1.003 (1.001-1.035) Urine Protein Negative (Negative) Urine Glucose (UA) Negative (Negative) Urine Ketones Trace H (Negative) Urine Blood Negative (Negative) Urine Nitrite Negative (Negative) Urine Bilirubin Negative (Negative) Urine Urobilinogen <2.0 (<2.0) mg/dL Ur Leukocyte Esterase Negative (Negative) Urine Opiates Screen Not Detected (NotDetected) Ur Oxycodone Screen Not Detected (NotDetected) Urine Methadone Screen Not Detected (NotDetected) Ur Propoxyphene Screen Not Detected (NotDetected) Ur Barbiturates Screen Not Detected (NotDetected) U Tricyclic Antidepress Not Detected (NotDetected) Ur Phencyclidine Scrn Not Detected (NotDetected) Ur Amphetamines Screen Not Detected (NotDetected) U Methamphetamines Scrn Not Detected (NotDetected) U Benzodiazepines Scrn Not Detected (NotDetected) Urine Cocaine Screen Not Detected (NotDetected) U Marijuana (THC) Screen Not Detected (NotDetected) Disposition Clinical Impression: Depression Disposition: HOME SELF-CARE Condition: Stable Is patient prescribed a controlled substance at d/c from ED?: No Referrals: [facility] [Primary Care Provider] - 1-2 days
[2018-08-15 23:37] LABS: Appearance,Urine Clear (Clear); Bilirubin,Urine Negative (Negative); Blood,Urine Negative (Negative); Color,Urine Colorless; Glucose,Urine (UA) Negative (Negative); Ketones,Urine Trace (Negative); Leukocyte Esterase,Urine Negative (Negative); Nitrite,Urine Negative (Negative); Protein,Urine Negative (Negative); Specific Gravity,Urine 1.003 (1.001-1.035); Urobilinogen,Urine <2.0 mg/dL (<2.0)
[2018-08-15 23:48] LABS: Amphetamine Screen,Urine Not Detected (NotDetected); Barbiturate Screen,Urine Not Detected (NotDetected); Benzodiazepines Screen,Urine Not Detected (NotDetected); Cocaine Screen,Urine Not Detected (NotDetected); Methadone Screen, Urine Not Detected (NotDetected); Opiate Screen,Urine Not Detected (NotDetected); Oxycodone Screen, Urine Not Detected (NotDetected); Phencyclidine Screen,Urine Not Detected (NotDetected); Tricyclic Antidepressant,Urine Not Detected (NotDetected); Urn Cannabinoid Scrn Not Detected (NotDetected)
[2018-08-16 02:16] VITALS: BP 141/100; PULSE 95; RESP 16; TEMP 97.5
== END 2018-08-16 02:16 | disposition home or self-care (01) ==
LOC: EC 20:39
DX: F32.9 Major depressive disorder, single episode, unspecified (principal); K21.9 Gastro-esophageal reflux disease without esophagitis; I10 Essential (primary) hypertension; F41.9 Anxiety disorder, unspecified; F43.10 Post-traumatic stress disorder, unspecified; Z79.899 Other long term (current) drug therapy; Z88.8 Allergy status to other drugs, medicaments and biological substances; Z59.0 Homelessness
CPT/HCPCS: 80306; 81003; 82075; 99285

== ENCOUNTER 2018-12-31 15:37 | Emergency (ER) | payer OTHER ==
[2018-12-31 15:49] VITALS: BP 106/66; PULSE 89; RESP 18; TEMP 98.5
[2018-12-31] MEDS ORDERED: HYDROcodone/APAP 5-325MG 1 EACH TAB PO STA (16:02)
--- NOTE | 2018-12-31 16:06 | ED ---
General Adult HPI - General Chief complaint: Extremity Injury, Lower Stated complaint: Knee Injury Time Seen by Provider: 12/31/18 15:54 Source: patient Mode of arrival: wheelchair Limitations: no limitations - History of Present Illness Initial comments: Dictation was produced using [employer] dictation software. please excuse any grammatical, word or spelling errors. Chief Complaint: 48-year-old homeless man presents with right knee pain. History of Present Illness: 1-year-old male with homelessness, GERD and hypertension presents with right knee pain. Patient states she was walking when he actually kicked a curb. He states he tripped and fell and landed on his right knee. Patient tried to break his fall with his hands. Patient states he had immediate pain however stable to ambulate with a limp. The ROS documented in this emergency department record has been reviewed and confirmed by me. Those systems with pertinent positive or negative responses have been documented in the HPI. All other systems are other negative and/or noncontributory. PHYSICAL EXAM: General Impression: Alert and oriented x3, not in acute distress HEENT: Normocephalic atraumatic, extra-ocular movements intact, pupils equal and reactive to light bilaterally, mucous membranes moist. Cardiovascular: Heart regular rate and rhythm, S1&S2 audible, no murmurs, rubs or gallops Chest: Lungs clear to auscultation bilaterally, no rhonchi, no wheeze, no rales Abdomen: Bowel sounds present, abdomen soft, non-tender, non-distended, no organomegaly Musculoskeletal: Pulses present and equal in all extremities, no peripheral edema Motor: no focal deficits noted Neurological: CN II-XII grossly intact, no focal motor or sensory deficits noted Skin: Intact with no visualized rashes Psych: Normal affect and mood Right knee: Knee effusion, abrasion to the anterior patella, tender to palpation about the anterior and lateral knee. Movements intact. ED course: 48-year-old male presents with right knee pain after fall. Vital signs upon arrival are within acceptable limits. X-rays are unremarkable. There is however an effusion. No occult signs of fracture. Patient given one [place]. Patient prescription for crutches is told to take by mouth analgesics when necessary pain. Patient clear for discharge she is given follow-up with orthopedic surgery. Patient counseled on rest ice compression and elevation. - Related Data Home Medications Medication Instructions Recorded Confirmed Lisinopril [Zestril] 20 mg PO DAILY 05/27/18 08/15/18 [place] Carbonate 600 mg PO HS 07/06/18 08/15/18 Loratadine [Claritin] 10 mg PO DAILY PRN 07/06/18 08/15/18 Omeprazole [PriLOSEC] 20 mg PO AC-BRKFST 07/06/18 08/15/18 QUEtiapine FUMARATE [SEROquel] 300 mg PO HS 07/06/18 08/15/18 Albuterol Inhaler [Ventolin Hfa 1 puff INHALATION RT-Q6H PRN 08/13/18 08/15/18 Inhaler] Desvenlafaxine [Pristiq ER] 100 mg PO DAILY 08/13/18 08/15/18 Ergocalciferol (Vitamin D2) 50,000 unit PO Q14D 08/13/18 08/15/18 [Vitamin D2] Propranolol [Inderal] 40 mg PO BID 08/13/18 08/15/18 Previous Rx's Medication Instructions Recorded Naproxen 500 mg PO BID PRN #12 tablet 12/31/18 Allergies Allergy/AdvReac Type Severity Reaction Status Date / Time duloxetine [From Cymbalta] AdvReac Nausea & Verified 12/31/18 15:49 Vomiting Review of Systems ROS Statement: Those systems with pertinent positive or pertinent negative responses have been documented in the HPI. ROS Other: All systems not noted in ROS Statement are negative. Past Medical History Past Medical History: GERD/Reflux, Hypertension Additional Past Medical History / Comment(s): torn meniscus rt knee, History of Any Multi-Drug Resistant Organisms: None Reported Past Surgical History: Hernia Repair, Orthopedic Surgery Additional Past Surgical History / Comment(s): eye surgery, rt elbow, right knee, Past Anesthesia/Blood Transfusion Reactions: No Reported Reaction Past Psychological History: Anxiety, Depression, PTSD Smoking Status: Current every day smoker Past Alcohol Use History: Occasional Past Drug Use History: None Reported - Past Family History Mother Family Medical History: No Reported History General Exam Limitations: no limitations Course Vital Signs 12/31/18 15:47 Temperature 98.5 F Pulse Rate 89 Respiratory 18 Rate Blood Pressure 106/66 O2 Sat by Pulse 100 Oximetry Disposition Clinical Impression: Knee contusion Disposition: HOME SELF-CARE Instructions (If sedation given, give patient instructions): Knee Pain (ED) Prescriptions: Naproxen 500 mg PO BID PRN #12 tablet PRN Reason: Pain Is patient prescribed a controlled substance at d/c from ED?: No [facility] [[facility] Care Provider] - 1-2 days Raudel Padilla MD [STAFF PHYSICIAN] - 1-2 days Time of Disposition: 16:26
--- NOTE | 2018-12-31 16:21 | XR ---
EXAMINATION TYPE: XR knee complete RT DATE OF EXAM: 12/31/2018 CLINICAL HISTORY: Pain from fall injury TECHNIQUE: Three views of the right knee are obtained. COMPARISON: None. FINDINGS: There is no acute fracture/dislocation evident in right knee. Mild to moderate narrowing p atellofemoral and medial tibiofemoral compartments is present. Increased density suprapatellar bursa is consistent with large joint effusion. IMPRESSION: There is no acute fracture or dislocation in the right knee. Nonspecific large suprapate llar joint effusion noted.
== END 2018-12-31 16:36 | disposition home or self-care (01) ==
LOC: EC 15:37
DX: S80.01XA Contusion of right knee, initial encounter (principal); K21.9 Gastro-esophageal reflux disease without esophagitis; I10 Essential (primary) hypertension; F32.9 Major depressive disorder, single episode, unspecified; F41.9 Anxiety disorder, unspecified; F43.10 Post-traumatic stress disorder, unspecified; F17.200 Nicotine dependence, unspecified, uncomplicated; Z79.899 Other long term (current) drug therapy; Z88.8 Allergy status to other drugs, medicaments and biological substances; Z59.0 Homelessness; W01.0XXA Fall on same level from slipping, tripping and stumbling without subsequent striking against object, initial encounter; Y93.01 Activity, walking, marching and hiking; Y92.009 Unspecified place in unspecified non-institutional (private) residence as the place of occurrence of the external cause
CPT/HCPCS: 99283

== ENCOUNTER → 2020-04-08 | Outpatient (CLI) | payer OTHER ==
[2020-04-08 13:27] LABS: HCT 43.3 % (39.0-53.0); HGB 14.8 gm/dL (13.0-17.5); MCH 34.4 pg (25.0-35.0); MCHC 34.2 g/dL (31.0-37.0); MCV 100.5 fL (80.0-100.0); Mean Platelet Volume 7.8; Platelet Count 185 k/uL (150-450); RBC 4.31 m/uL (4.30-5.90); RDW 12.1 % (11.5-15.5); Reticulocyte % 2.6 % (0.5-2.0); WBC 5.2 k/uL (3.8-10.6)
[2020-04-08 18:57] LABS: % Iron Saturation 19.58 (15.00-50.00)
[2020-04-08 19:06] LABS: T4, Free (Free Thyroxine) 0.9 ng/dL (0.80-1.80)
[2020-04-08 19:09] LABS: Folate, Serum 9.9 ng/mL
== END | disposition home or self-care (01) ==
LOC: LABWHC1 11:53
PROVIDERS: ATTEND Psychiatry & Neurology Pain Medicine
DX: D64.9 Anemia, unspecified (principal)
CPT/HCPCS: 36415; 82607; 82668; 82728; 82746; 83540; 83550; 84439; 84443; 84481; 85027; 85045

== ENCOUNTER → 2020-05-19 | Outpatient (CLI) | payer OTHER ==
[2020-05-19 19:20] LABS: C Reactive Protein <0.4 mg/dL (0.0-0.8); Rheumatoid Factor, Qnt 5 IU/mL (0-15)
== END | disposition home or self-care (01) ==
LOC: LABWHC1 12:55
PROVIDERS: ATTEND Psychiatry & Neurology Pain Medicine
DX: R79.9 Abnormal finding of blood chemistry, unspecified (principal); M79.673 Pain in unspecified foot
CPT/HCPCS: 36415; 85652; 86038; 86140; 86431